=== PATIENT | female | born 1960 | race African-American/Black ===

== ENCOUNTER 2018-03-16 01:33 | Emergency (ER) | payer BC ==
[2018-03-16 01:40] VITALS: BP 140/85; PULSE 74; TEMP 98; BMI 28.5
--- NOTE | 2018-03-16 01:52 | PDOC ---
History of Present Illness - General Chief Complaint: Injury Stated Complaint: TRIPPED UP STEPS, INJURY TO RIGHT ANKLE Time Seen by Provider: 03/16/18 01:42 History Source: Patient Exam Limitations: No Limitations - History of Present Illness Initial Comments: 03/16/18 01:48 50-year-old female with history of diabetes, hyperlipidemia presents with right ankle and foot injury. The patient was attempting to endplate upstairs when she took a misstep and her her foot. Initially, the patient states she had some pain but denied other injuries. The pain persisted and she noted that she had a right swollen right ankle sick came to the ER. She denies any numbness or weakness. Past History - Past Medical History Allergies/Adverse Reactions: Allergies Allergy/AdvReac Type Severity Reaction Status Date / Time No Known Allergies Allergy Verified 03/16/18 01:34 Home Medications: Ambulatory Orders Simvastatin [Zocor -] 20 mg PO HS 10/09/14 metFORMIN XR [Glucophage *Xr* -] 500 mg PO DAILY 10/09/14 Acetaminophen [Tylenol] 650 mg PO Q4H PRN #20 tablet 03/16/18 COPD: No Diabetes: Yes Hypercholesterolemia: Yes - Suicide/Smoking/Psychosocial Hx Smoking History: Never smoked Have you smoked in the past 12 months: No Information on smoking cessation initiated: No Hx Alcohol Use: No Drug/Substance Use Hx: No Substance Use Type: None Review of Systems - Review of Systems Able to Perform ROS?: Yes Comments:: 03/16/18 01:49 GENERAL/CONSTITUTIONAL: [No fever or chills. No weakness. No weight change.] HEAD, EYES, EARS, NOSE AND THROAT: [No change in vision. No ear pain or discharge. No sore throat.] CARDIOVASCULAR: [No chest pain or shortness of breath.] RESPIRATORY: [No cough, wheezing, or hemoptysis.] GASTROINTESTINAL: [No nausea, vomiting, diarrhea or constipation. No rectal bleeding.] GENITOURINARY: [No dysuria, frequency, or change in urination.] MUSCULOSKELETAL: [ No neck or back pain.] + Right ankle and foot pain. SKIN AND BREASTS: [No rash or easy bruising.] NEUROLOGIC: [No headache, vertigo, loss of consciousness, or loss of sensation.] PSYCHIATRIC: [No depression or anxiety.] ENDOCRINE: [No increased thirst. No abnormal weight change.] HEMATOLOGIC/LYMPHATIC: [No anemia, easy bleeding, or history of blood clots.] ALLERGIC/IMMUNOLOGIC: [No hives or skin allergy. No latex allergy.] *Physical Exam - Vital Signs Last Vital Signs Temp Pulse Resp BP Pulse Ox 98 F 74 16 140/85 100 03/16/18 01:36 03/16/18 01:36 03/16/18 01:36 03/16/18 01:36 03/16/18 01:36 - Physical Exam Comments: 03/16/18 01:50 GENERAL: Awake, alert, and fully oriented, in no acute distress HEAD: No signs of trauma EYES: EOMI, sclera anicteric, conjunctiva clear ENT: Auricles normal inspection, hearing grossly normal, nares patent, Moist mucosa NECK: Normal ROM, supple EXTREMITIES: no edema. No clubbing or cyanosis. No cords, erythema. RLE: 2+ DP pulse. Sensation intact throughout. TTP navicular bone right foot. negative tenderness to 5th metatarsal. Noted to have edema R ankle with tenderness to medial and lateral malleolus. No tenderness along the proximal or mid tibia/fibula. NEUROLOGICAL: Cranial nerves II through XII grossly intact. Normal speech, SKIN: Warm, Dry, normal turgor, no rashes or lesions noted. ED Treatment Course - RADIOLOGY Radiology Studies Ordered: Category Date Time Status ANKLE & FOOT-RIGHT* [RAD] Stat Radiology 03/16/18 01:47 Ordered LEG TIB/FIB-RIGHT [RAD] Stat Radiology 03/16/18 01:47 Ordered Medical Decision Making - Medical Decision Making 03/16/18 01:51 Vital Signs Temp Pulse Resp BP Pulse Ox 98 F 74 16 140/85 100 03/16/18 01:36 03/16/18 01:36 03/16/18 01:36 03/16/18 01:36 03/16/18 01:36 Obtain a right ankle and foot x-ray. Rule out fracture. Reassess. 03/16/18 02:24 Radiograph reviewed by me, pending official radiology read. No acute fractures. Arthritic changes noted. Surendra wrap applied. Weight bearing as tolerated. Pt given crutches. Ice PRN. Pt declines NSAIDS, states gives her stomach upset. Tylenol PRN. Follow up with orthopedics. Pt's will drive pt home. *DC/Admit/Observation/Transfer Diagnosis at time of Disposition: Ankle sprain Qualifiers: Encounter type: initial encounter Involved ligament of ankle: unspecified ligament Laterality: right Qualified Code(s): S93.401A - Sprain of unspecified ligament of right ankle, initial encounter - Discharge Dispostion Condition at time of disposition: Stable - Prescriptions Prescriptions: Acetaminophen [Tylenol] 650 mg PO Q4H PRN #20 tablet PRN Reason: Pain - Referrals Referrals: Kelvin Malhotra MD [Staff Physician] - - Patient Instructions Printed Discharge Instructions: DI for Ankle Sprain, How to Use Crutches Additional Instructions: Your preliminary xray is negative for fractures. Elevate the leg as much as you can. Use the SURENDRA wrap for comfort. Weight bear as tolerated. 650 mg tylenol every 4 hours as needed for pain. Call back tomorrow for the official read of the xrays. Call [phone]. Please make an appointment with an orthopedist. - Post Discharge Activity Forms/Work/School Notes: Back to Work
[2018-03-16] MEDS ORDERED: ACETAMINOPHEN 325 MG TABLET (FP) PO ONE (02:24)
[2018-03-16] MEDS ORDERED: ACETAMINOPHEN 325 MG TABLET (FP) ONE (02:25)
== END 2018-03-16 02:32 | disposition home or self-care (01) ==
LOC: FER 01:33
DX: S93.401A Sprain of unspecified ligament of right ankle, initial encounter (principal); W18.09XA Striking against other object with subsequent fall, initial encounter; Y93.89 Activity, other specified; Y92.89 Other specified places as the place of occurrence of the external cause
CPT/HCPCS: 73590-TC-RT-FY; 73610-TC-RT-FY; 73630-TC-RT-FY; 99281-25

== ENCOUNTER 2019-03-19 20:35 | Emergency (ER) | payer BC ==
[2019-03-19 20:54] VITALS: BP 127/80; PULSE 78; TEMP 98.6; BMI 27.9
[2019-03-19 21:03] LABS: BASO % 1.2 % (0-2.0); EOS % 4.2 % (0-4.5); HEMATOCRIT 39.5 % (32.4-45.2); HEMOGLOBIN 13.1 GM/dl (10.7-15.3); LYMPH % 55.5 % (8-40); MCHC 33.3 g/dl (32.0-36.0); MEAN CELL VOLUME 87.3 fl (80-96); MONO % 8.1 % (3.8-10.2); PLATELET COUNT 260 K/MM3 (134-434); RBC 4.53 M/mm3 (3.60-5.2); RDW 12.2 % (11.6-15.6); WHITE BLOOD COUNT 3.4 K/mm3 (4.0-10.8)
[2019-03-19 21:19] LABS: ALBUMIN 3.9 g/dl (3.4-5.0); BILIRUBIN,TOTAL 1.2 mg/dl (0.2-1); CALCIUM 8.7 mg/dl (8.5-10); CREATININE 0.7 mg/dl (0.55-1.3); POTASSIUM 3.7 mmol/L (3.5-5.1); TOT PROT 7.2 g/dl (6.4-8.2)
[2019-03-19] MEDS ORDERED: MAG HYDROX/AL HYDROX/SIMETH 30 ML UNIT-DOSE CUP PO ONE (21:29)
[2019-03-19] MEDS ORDERED: ACETAMINOPHEN 1000 MG/100 ML VIAL (NON FORMULARY) IVPB ONE (21:29)
[2019-03-19] MEDS ORDERED: SODIUM CHLORIDE 0.9% 500 ML INFUS.BAG IV ONE (21:29)
[2019-03-19] MEDS ORDERED: FAMOTIDINE 20 MG/50 ML IVPB 20 MG/50 ML MG IVPB ONE ×2 (21:29→21:35)
[2019-03-19] MEDS ORDERED: MAG HYDROX/AL HYDROX/SIMETH 30 ML UNIT-DOSE CUP ONE (21:35)
[2019-03-19] MEDS ORDERED: ACETAMINOPHEN INJECTION 100 ML IVPB ONE (21:35)
--- NOTE | 2019-03-19 21:52 | PDOC ---
Documentation entered by Altagracia Betts SCRIBE, acting as scribe for Tracie Neal MD. Tracie Neal MD: This documentation has been prepared by the Alpesh mcqueen Adrianna, SCRIBE, under my direction and personally reviewed by me in its entirety. I confirm that the documentation accurately reflects all work, treatment, procedures, and medical decision making performed by me. History of Present Illness - General Chief Complaint: Chest Pain Stated Complaint: EPIGASTRIC PAIN Time Seen by Provider: 03/19/19 20:40 History Source: Patient Exam Limitations: No Limitations - History of Present Illness Initial Comments: The patient is a 59 year old female, with PMH of HLD and DM, presenting with chest pain/epigastric pain since earlier this afternoon. Patient notes she had an orange around 11am, and notes sudden onset pain most prominent at the substernal/epigastric region. Patient describes her pain as a pressure that is squeezing in nature, radiates to underneath her breasts and mid-back, and she rates as an 8/10. She notes the pain was initially intermittent, but has become constant prompting her visit to the ED (patient admits to having pizza around 4pm). Patient denies any recent heavy lifting or trauma. She reports an episode of similar symptoms in the past, where she went to the ER and was told it was gas. Off note, patient complains of unrelated right hip pain for the past 2 weeks that is intermittent, only present with getting up from a seated position to walk, and self-resolves after a minute of walking. Denies fever, chills, SOB, palpitation, dizziness, weakness, N, V, D, abdominal pain, bladder and bowel problems, leg swelling, rash, cough, runny nose, sore throat, numbness or tingling of extremities or face. No new changes in medications. no trauma o heavy lifting Allergies: None Past Medical History: HLD and DM Social history: Lives with family. No tobacco, ETOH or drug use. Surgical history: Abdominal hernia repair, x2 Meds: as documented in EMR Family history: no h/o sudden deaths, GA or CVA PMD: Dr. Byrd Review of systems Constitutional: no fevers or chills. No weakness HEENT: no headache or dizziness. No congestion. No visual/hearing disturbances. CVS: +Substernal cp. no syncope. Resp: no sob. No cough. Gastrointestinal: +Epigastric pain. no nausea or vomiting. Genitourinary: no urinary sx, hematuria. MUSCULOSKELETAL: +Unrelated right hip pain. +Mid Back pain (2/2 cp) No joint swelling. No neck pain. SKIN: no redness or skin changes, no discharge, no rash. No wounds. Hematologic: no easy bruising/bleeding. NEUROLOGIC: No headache, dizziness, LOC or altered mental status. No weakness, numbness or tingling. Psych: no anxiety or depression Allergic/Immunologic: no allergies All other systems reviewed and negative, or as documented in HPI. Physical exam General: Well appearing, awake and alert, NAD. HEENT: NCAT, PERRL, EOMI, clear conjunctiva, anicteric, moist mucus membranes, clear oropharynx, no oral lesions.. Neck: neck supple, FROM Resp: CTAB, normal and even respirations, no respiratory distress CVS: +Substernal cp ttp. RRR, no murmurs, 2+ peripheral pulses throughout, no peripheral edema Abdomen: +Epigastric ttp. soft, ND, no rebound or guarding. No CVAT. neg mason 's sign. neg mcburney's point tenderness. Back: nontender, normal inspection and ROM MSK: no edema, DOHERTY x4, ROM intact. No clubbing or cyanosis. normal bulk and tone. Extremities: no calf tenderness Neuro: alert, oriented appropriately; no focal neurologic deficits, 5/5 prox and distal strength throughout. Psych: Calm and cooperative Skin: warm and well perfused, cap refill <2 sec, normal color 03/19/19 22:20 03/19/19 23:00 Past History - Past Medical History Allergies/Adverse Reactions: Allergies Allergy/AdvReac Type Severity Reaction Status Date / Time No Known Allergies Allergy Verified 03/16/18 01:34 Home Medications: Ambulatory Orders Simvastatin [Zocor -] 20 mg PO HS 10/09/14 metFORMIN XR [Glucophage *Xr* -] 500 mg PO DAILY 10/09/14 Acetaminophen [Tylenol] 650 mg PO Q4H PRN #20 tablet 03/16/18 COPD: No Diabetes: Yes Hypercholesterolemia: Yes - Psycho Social/Smoking Cessation Hx Smoking History: Never smoked Have you smoked in the past 12 months: No Hx Alcohol Use: No Drug/Substance Use Hx: No Substance Use Type: None *Physical Exam - Vital Signs Last Vital Signs Temp Pulse Resp BP Pulse Ox 98.6 F 78 16 127/80 96 03/19/19 20:36 03/19/19 20:36 03/19/19 20:36 03/19/19 20:36 03/19/19 20:36 Heart Score/ECG Review #1 ECG reviewed & interpreted by me at: 20:50 General ECG Interpretation: Sinus Rhythm, Normal Rate, Normal Intervals Compared to previous ECG there are: No significant change 03/19/19 21:51 EKG normal sinus rhythm 71 bpm, no interval abnormalities, narrow QRS, ST and T wave segments and morphology normal. 03/19/19 21:51 Procedures - Bedside Ultrasound Bedside Ultrasound: Gallbladder Remarks: 03/19/19 23:02 POCUS biliary exam: Indication: abdominal pain Views: gallbladder long and s hort axis, CBD Findings: no stones or GB wall thickening or pericholecystic fluid, normal CBD ~ 1mm for age. GBW 3mm anteriorly. Neg sono murphys Impression: no acute findings. No cholelithiasis or cholecystitis. ED Treatment Course - LABORATORY CBC & Chemistry Diagram: 03/19/19 20:50 03/19/19 20:50 - ADDITIONAL ORDERS Additional order review: Laboratory Results 03/19/19 03/19/19 03/19/19 21:00 20:50 20:50 Sodium 141 Potassium 3.7 Chloride 108 H Carbon Dioxide 27 Anion Gap 6 L BUN 12.0 Creatinine 0.7 Est GFR (CKD-EPI)AfAm 109.91 Est GFR (CKD-EPI)NonAf 94.84 Random Glucose 133 H Calcium 8.7 Total Bilirubin 1.2 H AST 17 ALT 16 Alkaline Phosphatase 76 Troponin I < 0.03 Total Protein 7.2 Albumin 3.9 Lipase 100 03/19/19 20:50 RBC 4.53 MCV 87.3 MCHC 33.3 RDW 12.2 MPV 8.0 Neutrophils % 31.0 L Lymphocytes % 55.5 H Monocytes % 8.1 Eosinophils % 4.2 Basophils % 1.2 - RADIOLOGY Radiology Studies Ordered: Category Date Time Status CHEST PA & LAT [RAD] Stat Radiology 03/19/19 21:28 Taken - Medications Given in the ED: ED Medications Discontinued Medications Generic Name Dose Route Start Last Admin Trade Name Rex PRN Reason Stop Dose Admin Acetaminophen 1,000 mg 03/19/19 21:29 03/19/19 21:43 Ofirmev Injection - IVPB 03/19/19 21:30 1,000 mg ONCE ONE Administration Al Hydroxide/Mg Hydroxide 30 ml 03/19/19 21:29 03/19/19 21:42 Mylanta Oral Suspension - PO 03/19/19 21:30 30 ml ONCE ONE Administration Famotidine/Sodium Chloride 20 mg in 50 mls @ 100 mls/hr 03/19/19 21:29 21:43 Pepcid 20 Mg Premixed Ivpb - IVPB 03/19/19 21:58 100 mls/hr ONCE ONE Administration Sodium Chloride 1,000 ml 03/19/19 21:29 03/19/19 21:42 Normal Saline - IV 03/19/19 21:30 1,000 ml ONCE ONE Administration Medical Decision Making - Medical Decision Making 03/19/19 21:50 See HPI for details. Prior notes reviewed, including admissions, discharges and consultations. Vital signs reviewed, wnl. Vital Signs Temp Pulse Resp BP Pulse Ox 98.6 F 78 16 127/80 96 03/19/19 20:36 03/19/19 20:36 03/19/19 20:36 03/19/19 20:36 03/19/19 20:36 laboratory results and imaging reviewed, basic labs and lytes wnl, baseline with mild leukopenia. T bili elevated 1.2. LFTs/lipase_wnl CXR_no acute chest pathology, no infiltrate or edema. normal cardiac silhouette ; no mediastinal widening. airway midline Cardiac panel_neg trop, reassuring, doubt cardiac; one trop sufficient, with onset of sx >9 hours ago. EKG normal sinus rhythm 71 bpm, no interval abnormalities, narrow QRS, ST and T wave segments and morphology normal. Nonspecific T wave abnormalities also clinically doubt dissection or PE, no neuro sx. no SOB, no risk factors to suggest dissection or vascular pathology. ED course -interventions: pepcid, tylenol, maalox, hydration. reassess bedside pocus GB neg for stones, no e/o cholecystitis. 03/19/19 23:02 after meds and intervention, pt feels much improved. no cp. epigastric AP down to 3/10. no peritoneal findings impression and plan discussed, f/u PCP and return precautions supportive care, avoid triggers and food precipitants. Pt to be discharged in stable condition. Patient and family made aware of clinical impression, treatment recommendations and disposition plan, return precautions discussed (including but not limited to new or persistent/worsening symptoms, pain, fevers, or signs of infection, chest pain, respiratory distress , inability to tolerate oral intake, dehydration, syncope, or neurologic changes ). Follow up with PMD as recommended, follow up information provided, take medications as instructed for duration of time. continue with supportive care, avoid triggers and precipitants. All questions answered to patient's satisfaction and expressed understanding and comfort with this. At the time of discharge, the patient is alert, clinically improved, tolerating po and verbalizes understanding of instructions, satisfied with the care received and felt comfortable with the plan. Patient does not suffer from an acute life- threatening medical condition at this time and is safe for outpatient follow- up. Discharge - Discharge Information Problems reviewed: Yes Clinical Impression/Diagnosis: Abdominal pain Qualifiers: Abdominal location: epigastric Qualified Code(s): R10.13 - Epigastric pain Condition: Stable Disposition: HOME - Admission No - Follow up/Referral Referrals: Marni Byrd MD [Primary Care Provider] - - Patient Discharge Instructions Patient Printed Discharge Instructions: DI for Abdominal Pain-Adult, DI for Atypical Chest Pain Additional Instructions: 1) Please follow-up with your primary care doctor in the next 1-2 days. Please call tomorrow for for any urgent issues. 2) You were given a copy of the tests performed today. Please bring the results with you and review them with your primary care doctor. Your laboratory / imaging results were normal, including your bedside ultrasound, there were no stones or signs of infection your cardiac enzyme and EKG were within normal limits 3) If you have any worsening of symptoms or any other concerns please return to the ED immediately. Return if worsening symptoms including fevers, headache, vomiting, visual or hearing disturbances, abdominal pain, chest pain, shortness of breath, syncope, dehydration, inability to take things by mouth/vomiting, altered mental status, or worsening concerning symptoms. 4) Please continue taking your home medications as directed. Stay well hydrated and rest adequately. Make an appointment. If you cannot follow-up with your primary care doctor please return to the ED - Post Discharge Activity
--- NOTE | 2019-03-21 13:22 | EKG ---
Test Reason : Blood Pressure : / mmHG Vent. Rate : 071 BPM Atrial Rate : 071 BPM P-R Int : 174 ms QRS Dur : 074 ms QT Int : 420 ms P-R-T Axes : 048 -20 023 degrees QTc Int : 456 ms NORMAL SINUS RHYTHM NORMAL ECG NO PREVIOUS ECGS AVAILABLE Confirmed by NANO LOPEZ MD ([id number]) on 03/21/2019 1:22:48 PM Referred By: MORRO MCGOWAN Confirmed By:NANO LOPEZ MD
== END 2019-03-19 23:06 | disposition home or self-care (01) ==
LOC: FER 20:35
PROC: 3E033NZ Introduction of Analgesics, Hypnotics, Sedatives into Peripheral Vein, Percutaneous Approach (ICD-10-PCS; principal; 2019-03-19)
PROC: 3E033GC Introduction of Other Therapeutic Substance into Peripheral Vein, Percutaneous Approach (ICD-10-PCS; 2019-03-19)
PROC: 3E0337Z Introduction of Electrolytic and Water Balance Substance into Peripheral Vein, Percutaneous Approach (ICD-10-PCS; 2019-03-19)
DX: R10.13 Epigastric pain (principal); E11.9 Type 2 diabetes mellitus without complications; E78.00 Pure hypercholesterolemia, unspecified
CPT/HCPCS: 36415; 71046-TC-FY; 80053; 83690; 84484; 85025; 93005; 99283-25; J0131